=== PATIENT | male | born 1985 | race Caucasian/White ===

== ENCOUNTER 2017-12-09 19:10 | Emergency (ER) | payer MEDICAID ==
[~2017-12-09] VITALS: Ht 180.3 cm; Wt 78.3 kg
[~2017-12-09 19:10] MED LIST: ZITHTAB6 PO
[2017-12-09 19:16] VITALS: BP 158/104; PULSE 119; RESP 20; TEMP 98.2; O2SAT 98
--- NOTE | 2017-12-09 19:35 | PD ---
HPI Chief Complaint: Respiratory Symptoms Time Seen by Provider: 19:23 Travel History International Travel<30 days: No Contact w/Intl Traveler<30days: No Traveled to known affect area: No History of Present Illness HPI 32-year-old male complains of earache sore throat coughing congestion and wheezing. Patient states the symptoms started yesterday. Patient has a child at home with cold symptoms recently. Patient denies any chest pain shortness of breath. Patient denies abdominal pain. Patient denies any nausea vomiting diarrhea. Patient complains of body ache. PFSH Past Medical History Medical History: Denies Significant Hx Hx Anticoagulant Therapy: No Cardiovascular Problems: No Chemotherapy: No Cerebrovascular Accident: No Diabetes: No Diminished Hearing: No Respiratory: No Tetanus Vaccination: < 5 Years Influenza Vaccination: No Past Surgical History Hysterectomy: No Other Surgery: Yes (HYDROCELE REPAIR) Social History Alcohol Use: Yes (SOCIALLY) Tobacco Use: Yes Substance Use: No Allergies-Medications (Allergen,Severity, Reaction): Coded Allergies: No Known Allergies (Unverified Adverse Reaction, Unknown, 12/09/17) Reported Meds & Prescriptions Reported Meds & Active Scripts Active Review of Systems General / Constitutional: No: Fever Eyes: No: Visual changes HENT: Positive: Sore Throat, Earache, No: Headaches Cardiovascular: No: Chest Pain or Discomfort Respiratory: Positive: Cough, Wheezing, No: Shortness of Breath Gastrointestinal: No: Abdominal Pain Genitourinary: No: Dysuria Musculoskeletal: No: Pain Skin: No Rash Neurologic: No: Weakness Psychiatric: No: Depression Endocrine: No: Polydipsia Hematologic/Lymphatic: No: Easy Bruising Physical Exam Narrative GENERAL: Well-nourished, well-developed patient. SKIN: Focused skin assessment warm/dry. HEAD: Normocephalic. EYES: No scleral icterus. No injection or drainage. TM: Clear. Throat: Nonerythematous. NECK: Supple, trachea midline. No JVD or lymphadenopathy. No meningismus CARDIOVASCULAR: Regular rate and rhythm without murmurs, gallops, or rubs. RESPIRATORY: Breath sounds equal bilaterally. No accessory muscle use. GASTROINTESTINAL: Abdomen soft, non-tender, nondistended. MUSCULOSKELETAL: No cyanosis, or edema. BACK: Nontender without obvious deformity. No CVA tenderness. Neurologic exam normal. Data Data Last Documented VS Vital Signs Date Time Temp Pulse Resp B/P (MAP) Pulse Ox O2 Delivery O2 Flow Rate FiO2 12/09/17 19:16 98.2 119 20 158/104 (122) 98 Orders Orders Influenzae A/B Antigen (12/09/17 19:30) Chest, Single Ap (12/09/17 19:30) MDM Medical Decision Making Medical Screen Exam Complete: Yes Emergency Medical Condition: Yes Interpretation(s) 1958 PM. Chest x-ray shows no acute consolidation. Influenza AB antigen negative. Differential Diagnosis Differential diagnosis including viral syndrome, otitis media, pharyngitis, bronchitis, pneumonia Narrative Course 32-year-old male with earache sore throat coughing congestion. Diagnosis Primary Impression: Bronchitis Additional Impression: Viral syndrome Patient Instructions: General Instructions Additional Instructions: Z-Willie as directed. Zjua-[id number]-[id number] cough medication as directed. Tylenol or ibuprofen for aching pain. Follow-up with personal physician. Return if worse. Med/Other Pt SpecificInfo: Prescription(s) given Scripts Azithromycin (Zithromax Z-Willie) 250 Mg Dspk 250 MG PO DIRECTED for Infection, #1 DSPK 0 Refills 500 MG (2 tabs) day 1, then 1 tab days 2-5. Prov: Hardik Clayton MD 12/09/17 Disposition: 01 DISCHARGE HOME Condition: Stable Hardik Clayton MD Dec 09, 2017 19:35
--- NOTE | 2017-12-09 19:55 | RADRPT ---
EXAM DATE/TIME: 12/09/2017 19:40 [facility] COMPARISON: No previous studies available for comparison. INDICATIONS : Shortness of breath. MEDICAL HISTORY : None. SURGICAL HISTORY : None. ENCOUNTER: Initial ACUITY: 2 days PAIN SCORE: 0/10 LOCATION: Bilateral chest FINDINGS: A single view of the chest demonstrates the lungs to be symmetrically aerated without evidence of mas s, infiltrate or effusion. The cardiomediastinal contours are unremarkable. Osseous structures are intact. CONCLUSION: The lungs are clear. John Paul Rodriguez MD on December 09, 2017 at 19:54 Board Certified Radiologist. This report was verified electronically.
[2017-12-09] MEDS ORDERED: ZITHTAB PO (20:04)
[2017-12-09 20:17] VITALS: BP 140/90
== END 2017-12-09 20:27 | disposition home or self-care (01) ==
LOC: PHED 19:10
DX: J40 Bronchitis, not specified as acute or chronic (principal); B34.9 Viral infection, unspecified; Z72.0 Tobacco use
CPT/HCPCS: 71045; 87804; 99284

== ENCOUNTER 2017-12-26 00:11 | Emergency (ER) | payer MEDICAID ==
[~2017-12-26] VITALS: Ht 180.3 cm; Wt 83.0 kg
[~2017-12-26 00:11] MED LIST changes: +ZITHTAB PO; -ZITHTAB6 PO
[2017-12-26 00:32] VITALS: BP 138/79; PULSE 97; RESP 18; TEMP 98.2; O2SAT 98
== END 2017-12-26 01:09 | disposition left against medical advice (07) ==
LOC: PHED 00:11
DX: H57.11 Ocular pain, right eye (principal); Z53.21 Procedure and treatment not carried out due to patient leaving prior to being seen by health care provider
CPT/HCPCS: 99281